=== PATIENT | female | born 1975 | race African-American/Black ===

== ENCOUNTER 2017-03-08 17:00 | Observation (INO) ==
[2017-03-08] MEDS ORDERED: CATAPRES PO STA (17:40)
[2017-03-08 17:58] LABS: BASOPHILS % (AUTO) 0.4 % (0.0-3.0); EOSINOPHILS # (AUTO) 0.2 K/ul (0.0-0.7); EOSINOPHILS % (AUTO) 2.3 % (0.0-7.0); HEMATOCRIT 26.7 % (37.0-47.0); HEMOGLOBIN 8.7 g/dl (12.0-16.0); IMMATURE GRANULOCYTE % (AUTO) 0.1 % (0.0-5.0); LYMPHOCYTES % (AUTO) 40.5 (10.0-50.0); MEAN CORPUSCULAR HEMOGLOBIN 26.8 pg (27.0-31.0); MEAN CORPUSCULAR HGB CONC 32.6 (31.8-35.4); MEAN CORPUSCULAR VOLUME 82.2 fl (81.0-99.0); MONOCYTES # (AUTO) 0.5 K/uL (0.4-2.0); MONOCYTES % (AUTO) 6.6 (0-10); NEUTROPHILS # (AUTO) 3.7 K/ul (2.0-6.9); NEUTROPHILS % (AUTO) 50.1; PLATELET COUNT 321 10^3/uL (140-440); RED BLOOD COUNT 3.25 10^6/ul (4.20-5.40); WHITE BLOOD COUNT 7.38 K/ul (4.6-10.2)
[2017-03-08] MEDS ORDERED: ZESTRIL ONE (17:59)
[2017-03-08 18:18] LABS: ALBUMIN 3.4 g/dL (3.4-5.0); ALBUMIN/GLOBULIN RATIO 1.03; ANION GAP 9.9; BILIRUBIN,TOTAL 0.18 mg/dL (0.00-1.20); BUN/CREATININE RATIO 9.75; CALCIUM 8.6 mg/dL (8.2-10.2); CREATININE 0.82 mg/dL (0.60-1.30); POTASSIUM 2.9 mmol/L (3.5-5.10); TOTAL PROTEIN 6.7 g/dL (6.4-8.2)
[2017-03-08] MEDS: ZESTRIL PO SCH (18:31)
[2017-03-08 18:47] LABS: BILIRUBIN,URINE Negative (NEGATIVE); KETONES,URINE Negative (NEGATIVE); LEUKOCYTE ESTERASE ,URINE Negative (NEGATIVE); NITRITE,URINE Negative (NEGATIVE); PH,URINE 7.5 (5-9); PROTEIN,URINE Negative (NEGATIVE); URINE, BLOOD Negative (NEGATIVE)
[2017-03-08 18:48] LABS: ADD URINE MICROSCOPIC NO
[2017-03-08 18:50] LABS: URINE PREGNANCY INTERNAL QC INTERNAL QC VALID
[2017-03-08 18:59] LABS: COCAIN SCREEN,URINE NEGATIVE (NEGATIVE)
--- NOTE | 2017-03-08 19:27 | CT ---
EXAM: CT brain without contrast HISTORY: Hypertension TECHNIQUE: Multi-slice transaxial helical with coronal and sagital reformated images COMPARISON: None FINDINGS: The midline structures are central. The ventricles are neither dilated nor displaced. Th e brain attenuation with its romano-white matter interface is normal. No acute intraparenchymal or extr aaxial hemorrhagic collections are detected. The calvarium is intact. The visible paranasal sinuses and mastoid air cells are clear. IMPRESSION: No acute intracranial process.
[2017-03-08] MEDS ORDERED: K-DUR PO STA (20:16)
[2017-03-08 20:35] LABS: IMMATURE RETIC FRACTION 20.8; RETICULOCYTE % 1.14 %
[2017-03-08 21:13] LABS: FERRITIN 9.13 ng/mL (4.63-204.00); FOLATE 12.2 ng/mL (3.1-20.5)
[2017-03-09 04:43] LABS: BASOPHILS % (AUTO) 0.5 % (0.0-3.0); EOSINOPHILS # (AUTO) 0.2 K/ul (0.0-0.7); EOSINOPHILS % (AUTO) 3.6 % (0.0-7.0); HEMATOCRIT 26.3 % (37.0-47.0); HEMOGLOBIN 8.4 g/dl (12.0-16.0); IMMATURE GRANULOCYTE % (AUTO) 0.2 % (0.0-5.0); LYMPHOCYTES # (AUTO) 2.4 K/uL (0.60-3.4); LYMPHOCYTES % (AUTO) 43.8 (10.0-50.0); MEAN CORPUSCULAR HEMOGLOBIN 26.3 pg (27.0-31.0); MEAN CORPUSCULAR HGB CONC 31.9 (31.8-35.4); MEAN CORPUSCULAR VOLUME 82.2 fl (81.0-99.0); MONOCYTES # (AUTO) 0.4 K/uL (0.4-2.0); NEUTROPHILS # (AUTO) 2.4 K/ul (2.0-6.9); NEUTROPHILS % (AUTO) 43.9; PLATELET COUNT 304 10^3/uL (140-440); WHITE BLOOD COUNT 5.52 K/ul (4.6-10.2)
[2017-03-09 05:00] LABS: ALBUMIN/GLOBULIN RATIO 0.91; ANION GAP 8.9; BILIRUBIN,TOTAL 0.26 mg/dL (0.00-1.20); BUN/CREATININE RATIO 12.98; CALCIUM 8.8 mg/dL (8.2-10.2); CREATININE 0.77 mg/dL (0.60-1.30); POTASSIUM 3.9 mmol/L (3.5-5.10); TOTAL PROTEIN 6.3 g/dL (6.4-8.2)
[2017-03-09] MEDS: ZESTRIL PO SCH (08:13)
[2017-03-09] MEDS: NORCO 7.5-325 PO PRN ×2 (08:44→16:09)
[2017-03-09 09:22] LABS: CHOL/HDL RATIO 4.2 (4.5-5.5)
[2017-03-09] MEDS ORDERED: ZOFRAN 4 MG/2 ML IVP PRN (18:02)
[2017-03-09] MEDS: TORADOL IVP PRN (18:30)
--- NOTE | 2017-03-10 07:41 | ECHO2D ---
Date of Exam: 03/09/17 Ordering Physician: JERSEY LIVE Room #: 122 Reason for Echo: HYPERTENSION, SYNCOPE M-Mode Normal Adult Results LV Dimensions Normal Adult Results AoV Opening excursions >1.6 >1.6 LVEDD-base- 3.5-5.8 5.0 Ao root dimensions 2.0-3.7 2.8 LVESD-base- 3.1-4.6 L. Atrium dimensions 1.9-3.8 4.1 Post. Wall thickness 0.8-1.1 1.3 IV septum (thickness) 0.7-1.2 1.3 Post. Wall excursion 0.72-1.3 NORMAL Septal motion NORMAL Systolic motion R. Ventricular cavity 1.5-2.0 NORMAL LVEF 60% 64% Paradoxical septal wall motion NORMAL 2-D : ENLARGED LEFT ATRIAL CAVITY--NORMAL LEFT VENTRICULAR CONTRACTILITY-- NORMAL VALVES, NO EFFUSION, NO THROMBUS M-MODE: MV: NORMAL AV: NORMAL TV: NORMAL PV: CHAMBER SIZE: ENLARGED LEFT ATRIAL CAVITY WALL MOTION: NORMAL PERICARDIUM: NORMAL INTERPRETATION: 1. LEFT VENTRICULAR HYPERTROPHY WITH ENLARGED LEFT ATRIAL CAVITY 2. NORMAL LEFT VENTRICULAR CONTRACTILITY 3. NORMAL VALVES MTDD
[2017-03-10] MEDS: ZESTRIL PO SCH (09:36)
[2017-03-10] MEDS: TORADOL IVP PRN (09:36)
[2017-03-10] MEDS: NORCO 7.5-325 PO PRN (09:43)
[2017-03-10 14:15] VITALS: BP 128/80; TEMP 99.2
--- NOTE | 2017-03-10 15:21 | PN ---
DATE OF SERVICE: 03/09/17 SUBJECTIVE: Admitted from the office for hypertensive urgency and the patient's potassium was low which has been replaced. The patient complains of some headache otherwise, no nausea or vomiting. No blurry vision. REVIEW OF SYSTEMS: CONSTITUTIONAL: No fever, no chills. HEENT: Normal. ENDOCRINE: No weight gain, no weight loss. CVS: No angina symptoms. No CHF symptoms. No palpitations. No atypical chest pain for CAD. No shortness of breath. No PND, no orthopnea. RESPIRATORY: No cough, no hemoptysis. GI: No nausea, no vomiting. No abdominal pain. : No hematuria. No polyuria. MUSCULOSKELETAL:. No joint swelling. [employer]: Headache. No blurry vision. PSYCHIATRIC: Not anxious. No depression. No suicidal thoughts. No homicidal thoughts. SKIN: Intact. No rash. PHYSICAL EXAMINATION: V/S: BP 148/100, respiratory rate 18, heart rate 68, temperature 98.4, saturation 98 on room air. HEENT: Normocephalic, atraumatic. Mucosa dry. Pallor positive. No icterus. NECK: Supple. No JVD, no carotid bruit. No lymphadenopathy. LUNGS: Decreased entry. Clear to auscultation. No rales or rhonchi. HEART: S1, S2 normal. No S3. No murmur, gallop or regurgitation. ABDOMEN: Soft, nontender. Bowel sounds active. No rigidity. No rebound or guarding. No CVA tenderness. EXTREMITIES: No clubbing, cyanosis or pedal edema. MUSCULOSKELETAL: No joint swelling. NEUROLOGIC: Awake, alert, oriented times three. No focal deficit. LYMPHATIC: No lymph nodes palpable. SKIN: Intact. LABS: White count 7.38, hemoglobin 8.7, hematocrit 26.7, platelet count 321. Sodium 142, potassium 2.9, chloride 105, bicarb 30, BUN 8, creatinine 0.8. Glucose 89. ASSESSMENT: 1. Hypertensive urgency status post 2. Hypokalemia being replaced 3. Anemia most likely iron deficiency anemia from the heavy menses but will evaluate 4. Headache most likely migraine, patient has. PLAN: 1. [place] 5 mg q.8hr 2. Continue replacement of potassium 3. Continue Lisinopril 40 mg p.o. daily 4. Occult blood test this morning 5. Out of bed to chair 6. Activity as tolerated TIME SPENT: More than 35 minutes MTDD
--- NOTE | 2017-03-11 08:48 | HOLTER ---
PATIENT INFORMATION AND COMMENTS Attending Physician: JERSEY LIVE Indications: SYNCOPE, HYPERTENSION __ Patient Medications: NORCO, LISINOPRIL __ Pre-procedure Summary: Protocol: Standard Heart Rate Started: 03/09/17910 Minimum: 51 BPM Weight: 200 LBS Ended: 03/10/17910 Maximum: 110 BPM Height: 66" Duration: 24 HOURS Average: 67 BPM _ INTERPRETATIONS/OBSERVATIONS: 1. BASIC RHYTHM: SINUS, RATE 50 BPM TO 100 BPM, AVERAGE 67 BPM 2. RARE PAC'S AND PVC'S --ISOLATED 3. NO ST-T WAVE CHANGES FROM BASELINE 4. ACTIVITY LOG NOT MAINTAINED MTDD
--- NOTE | 2017-04-22 11:48 | DS ---
DATE OF SERVICE: 03/10/17 FINAL DIAGNOSIS: 1. HYPERTENSION UNCONTROLLED 2. NEAR SYNCOPAL EPISODE, PROBABLY FROM THE UNCONTROLLED HYPERTENSION 3. HEADACHES 4. COPD 5. CONSTIPATION 6. NICOTINE USE 7. HISTORY OF TUBAL LIGATION 8. ANEMIA. THE PATIENT HAS A HEAVY MENSES AND TAKES OVER THE COUNTER IRON PILLS. PLAN: 1. Discharge the patient home. 2. Follow up with [facility] within 3 to 4 days. 3. Keep checking the blood pressure. MEDICATIONS AT DISCHARGE: Norvasc 5 mg p.o. daily Lisinopril 40 mg p.o. daily DIET INSTRUCTIONS: Cardiac and healthy. ACTIVITY: As much as tolerated. DISEASE SPECIFIC EDUCATION: About the uncontrolled hypertension, risk of stroke was discussed and intracranial bleed was discussed. HOSPITAL COURSE: Greg Lua who is a 41 year old female came to the office to establish care. She did have a complaint that the patient had passed out at home. She didn't know what happened. The patient's had to get her to the bed. She woke up and she was not confused. She checked the blood pressure and it was high, so she came to the office. In the office the blood pressure was 177/117 in the left arm and 186/110 on the right arm. With the given history of syncopal episodes and uncontrolled high blood pressure, the patient was admitted to the hospital. CT of the head was negative for the stroke. Holter Monitoring was put on. Echocardiogram was done which showed left ventricular hypertrophy. No other findings. The patient was started on the Norvasc and Lisinopril 40 mg. With the given medication, the blood pressure has been controlled well. The patient's hemoglobin was 8.7 and 8.4 and when asked the patient says that she has a chronic problem with her menses. The patient is planning to see the [employer]NA[employer] as an outpatient for a possible hysterectomy or going onto the control medication. Anemia profile done which showed iron levels for 22 and TIBC 454. Cholesterol was normal. As blood pressure was getting controlled, the patient had been active and alert and did not have any problems, the patient was discharged to home. TIME SPENT: MORE THAN 60 MINUTES [facility]
== END 2017-03-10 15:49 | disposition home or self-care (01) ==
LOC: INTOOBSV 17:00 → MEDSURG B 17:00
PROVIDERS: ADMIT Emergency Medicine; ATTEND Emergency Medicine
DX: I16.0 Hypertensive urgency (principal); I10 Essential (primary) hypertension; I51.7 Cardiomegaly; R55 Syncope and collapse; D64.9 Anemia, unspecified; R51 Headache; J44.9 Chronic obstructive pulmonary disease, unspecified; K59.00 Constipation, unspecified; F17.200 Nicotine dependence, unspecified, uncomplicated; Z98.51 Tubal ligation status
CPT/HCPCS: 36415; 80053; 80061; 80306; 81001; 81025; 82607; 82728; 82746; 83540; 83550; 84443; 84466; 85025; 85045; 93005; 93010; 93227

== ENCOUNTER 2018-01-25 15:53 | Outpatient (CLI) | END 2018-01-25 15:54 | disposition home or self-care (01) | LOC: RHC-LAB 15:53 | PROVIDERS: ATTEND Nurse Practitioner Family | DX: I10 Essential (primary) hypertension (principal); J02.9 Acute pharyngitis, unspecified | CPT/HCPCS: 36415; 80053; 80061; 85025; 87651 ==

== ENCOUNTER 2018-03-02 07:44 | Outpatient (CLI) ==
--- NOTE | 2018-03-02 10:14 | MAMMO ---
EXAM: Bilateral digital screening mammogram (2-D and 3-D) History: Baseline screening Findings: MLO and CC views of bilateral breasts demonstrate heterogeneously dense breast parenchyma which can obscure small lesions. There are no dominant masses, no suspicious microcalcifications and no architectural distortions. CAD was reviewed by the radiologist. Tomosynthesis was performed. Be nign bilateral axillary lymph nodes. Impression: Benign mammogram. Recommend followup routine screening mammography in 1 year. BIRADS 2
== END 2018-03-02 07:45 | disposition home or self-care (01) ==
LOC: RAD 07:44
PROVIDERS: ATTEND Nurse Practitioner Family
DX: Z12.31 Encounter for screening mammogram for malignant neoplasm of breast (principal)

== ENCOUNTER 2018-04-27 13:42 | Emergency (ER) ==
[2018-04-27 13:50] VITALS: BP 132/84; TEMP 98.2; BMI 35.2
[2018-04-27] MEDS ORDERED: DUONEB NEB STA (15:12)
[2018-04-27] MEDS ORDERED: TUSSIONEX PO STA (15:13)
[2018-04-27] MEDS ORDERED: DECADRON 4 MG/ML SDV IM STA (15:13)
[2018-04-27] MEDS ORDERED: ZITHROMAX PO STA (15:14)
--- NOTE | 2018-04-27 16:19 | DI ---
EXAM: PA and lateral views of the chest HISTORY: Cough. COMPARISON: None FINDINGS: The cardiomediastinal silhouette is normal. There is no pneumothorax or pleural effusion. There is no consolidation, nodule or mass. The osseous structures are unremarkable. IMPRESSION: No acute cardiopulmonary process
--- NOTE | 2018-04-27 16:19 | ED.PDOC ---
General ED Provider: Dr. SERENITY MCKEON Chief Complaint: Respiratory Complaint Stated Complaint: cough, congestion, flu like symptoms Time Seen by Physician: 14:00 Mode of Arrival: Walk-In Information Source: Patient Exam Limitations: No limitations Primary Care Provider: OUSMANE URIBE Nursing and Triage Documentation Reviewed and Agree: Yes Does patient meet sepsis criteria?: No System Inflammatory Response Syndrome: Not Applicable Sepsis Protocol: For patient's 13 years and over: Temp is 96.8 and below OR 101 and greater Pulse >90 BPM Resp >20/minute Acutely Altered Mental Status Are patient's symptoms suggestive of a new infection, such as: -Pneumonia -Skin, Soft Tissue -Endocarditis -UTI -Bone, Joint Infection -Implantable Device -Acute Abdominal Infection -Wound Infection -Meningitis -Blood Stream Catheter Infection -Unknown Respiratory Complaint Exam - Respiratory Complaint/Exam Onset/Duration: 1 day Symptoms Are: Still present Timing: Intermittent Initial Severity: Moderate Current Severity: Moderate Location: Throat, Chest Character: Reports: Non-productive cough, Dry cough Aggravating: Reports: None Alleviating: Reports: Bronchodilators Associated Signs and Symptoms: Reports: Chills, URI, Nasal congestion. Denies: Rapid breathing, Dyspnea, Fever, Chest pain, Pleuritic chest pain, Wheezing, Hemoptysis, Dizziness, Calf pain, Calf swelling, Edema, Hoarseness, Sinus discomfort, Vomiting, Sore throat, Weight loss, Decreased oral intake, Increased thirst, Increased appetite, Increased urination History of Healthcare-Acquired Pneumonia: No Related Surgical History: Reports: None Pulmonary Embolism Risk Factors: None Cardiac Risk Factors: Reports: None Pseudomonas Risk Factors: Reports: None Tuberculosis Risk Factors: Reports: None Status Asthmaticus Risk Factors: Reports: None Home Oxygen Use: No Recent Stress Test: No Recent Echo/LV Function: No Current Antibiotic Use: No Current Asthma Medication Use: No Respiratory Distress: None Inadequate Respiratory Effort: No Dysphagia Present: No Stridor Present: No JVD Present: No Accessory Muscle Use: No Retractions: Not Present Diminished Breath Sounds: No Sinus Tenderness: None Grunting Respirations: No Kussmaul Respirations: No Differential Diagnoses: Pneumonia, Bronchitis, URI Review of Systems - Review Of Systems Constitutional: Reports: Malaise Eyes: Reports: No symptoms Ears, Nose, Mouth, Throat: Reports: No symptoms Respiratory: Reports: Cough Cardiac: Reports: No symptoms GI: Reports: No symptoms : Reports: No symptoms Musculoskeletal: Reports: No symptoms Skin: Reports: No symptoms Neurological: Reports: No symptoms Endocrine: Reports: No symptoms Hematologic/Lymphatic: Reports: No symptoms All Other Systems: Reviewed and Negative Past Medical History - Past Medical History Previously Healthy: No Endocrine: Reports: Dyslipidemia Cardiovascular: Reports: Hypertension Respiratory: Reports: Asthma Hematological: Reports: None Gastrointestinal: Reports: None Genitourinary: Reports: None Neuro/Psych: Reports: None Musculoskeletal: Reports: None Cancer: Reports: None Last Menstrual Period: NA - Surgical History General Surgical History: Reports: None - Family History Family History: Reports: None - Social History Smoking Status: Former smoker Hx Substance Use: No Alcohol Screening: None Physical Exam - Physical Exam Appearance: Ill-appearing Ill-appearing: Mild Eyes: EDUARDO, EOMI, Conjunctiva clear ENT: Ears normal, Nose normal, Oropharynx normal Respiratory: Rhonchi, Wheezes Cardiovascular: RRR, Pulses normal, No rub, No murmur GI/: Soft, Nontender, No masses, Bowel sounds normal, No Organomegaly Musculoskeletal: Normal strength, ROM intact, No edema, No calf tenderness Skin: Warm, Dry, Normal color Neurological: Sensation intact, Motor intact, Reflexes intact, Cranial nerves intact, Alert, Oriented Psychiatric: Affect appropriate, Mood appropriate Re-Evaluation - Re-Evaluation Time of Re-Evaluation: 16:00 Status: Improved Vital Signs Stable: Yes Pain Level: 0 Appearance: NAD Lungs: Clear Skin: Warm and Dry Neuro: Alert and Oriented X3 CV: RRR Critical Care Note - Critical Care Note Total Time (mins): 0 Course - Course Hematology/Chemistry: 04/27/18 15:32 04/27/18 15:32 Orders, Labs, Meds: Lab Review 04/27/18 04/27/18 04/27/18 15:32 15:32 15:32 WBC 5.93 RBC 4.10 L Hgb 12.7 Hct 38.0 MCV 92.7 MCH 31.0 MCHC 33.4 RDW Coeff of Jude 12.7 Plt Count 286 Immature Gran % (Auto) 0.2 Neut % (Auto) 47.5 Lymph % (Auto) 37.3 [place] % (Auto) 6.9 Eos % (Auto) 7.6 H Baso % (Auto) 0.5 Immature Gran # (Auto) 0.0 Neut # (Auto) 2.8 Lymph # (Auto) 2.2 [place] # (Auto) 0.4 Eos # (Auto) 0.5 Baso # (Auto) 0.0 Sodium 136.9 Potassium 3.89 Chloride 103.0 Carbon Dioxide 28.1 Anion Gap 9.69 BUN 7.2 Creatinine 0.70 Estimated GFR (MDRD) 112.00 BUN/Creatinine Ratio 10.28 Glucose 85.1 Calcium 9.18 Total Bilirubin 0.34 AST 21.7 ALT 15.5 Alkaline Phosphatase 58.4 Total Protein 7.99 Albumin 4.59 Globulin 3.40 Albumin/Globulin Ratio 1.35 Influ A Molecular Assay Negative by naat Influ B Molecular Assay Negative by naat Orders Category Date Time Status NEBULIZER TREATMENT Stat CARDIO 04/27/18 15:13 Completed CBC W/ AUTO DIFF Stat LAB 04/27/18 15:32 Completed COMPREHENSIVE METABOLIC PANEL Stat LAB 04/27/18 15:32 Completed FLU A/B MOLECULAR Stat LAB 04/27/18 15:32 Completed MOLECULAR GROUP A STREP Stat LAB 04/27/18 15:32 Completed Azithromycin [Zithromax] MEDS 04/27/18 15:14 Discontinued 1,000 mg PO ONCE STA Dexamethasone 4 mg/ml Inj [Decadron 4 mg/ml Sdv] MEDS 04/27/18 15:13 Discontinued 8 mg IM ONCE STA Hydrocodone/Chlorphen Polis [Tussionex] MEDS 04/27/18 15:13 Discontinued 5 ml PO ONCE STA Ipratropium/Albuterol Neb [Duoneb] MEDS 04/27/18 15:12 Discontinued 1 vial NEB ONCE STA CHEST, 2 VIEWS PA & LAT Stat RADS 04/27/18 15:11 Ordered Medications Discontinued Medications Generic Name Dose Route Start Last Admin Trade Name Freq PRN Reason Stop Dose Admin Albuterol/Ipratropium 1 vial 04/27/18 15:12 04/27/18 15:25 Duoneb NEB 04/27/18 15:13 1 vial ONCE STA Administration Azithromycin 1,000 mg 04/27/18 15:14 04/27/18 15:41 Zithromax PO 04/27/18 15:15 1,000 mg ONCE STA Administration Chlorphenir/Hydrocodone Polistirex 5 ml 04/27/18 15:13 04/27/18 15:42 Tussionex PO 04/27/18 15:14 5 ml ONCE STA Administration Dexamethasone Sodium Phosphate 8 mg 04/27/18 15:13 04/27/18 15:43 Decadron 4 Mg/Ml Sdv IM 04/27/18 15:14 8 mg ONCE STA Administration Vital Signs: Temp Pulse Resp BP Pulse Ox 04/27/18 13:45 98.2 F 82 16 132/84 98 Departure - Departure Time of Disposition: 16:19 Disposition: HOME SELF-CARE Discharge Problem: Bronchitis, Viral syndrome Instructions: Viral Syndrome (ED) Condition: Good Pt referred to PMD for follow-up: Yes IPMP verified?: No Additional Instructions: Please call your Family Physician as soon as possible to schedule a follow-up appointment. Prescriptions: Prednisone 10 mg PO DAILYWM #7 tablet Allergies/Adverse Reactions: Allergies No Known Allergies Allergy (Unverified 04/27/18 13:44) Home Medications: Ambulatory Orders Acetaminophen [Tylenol] 325 mg PO PRN 03/08/17 Prednisone 10 mg PO DAILYWM #7 tablet 04/27/18 Disposition Discussed With: Patient
== END 2018-04-27 16:32 | disposition home or self-care (01) ==
LOC: ED 13:42
DX: J20.9 Acute bronchitis, unspecified (principal); I10 Essential (primary) hypertension; E78.5 Hyperlipidemia, unspecified
CPT/HCPCS: 36415; 80053; 85025; 87502; 87651; 94640; 96372; 99283

== ENCOUNTER 2018-05-02 10:02 | Emergency (ER) ==
[2018-05-02 10:08] VITALS: BP 122/85; TEMP 98.6; BMI 34.3
[2018-05-02] MEDS ORDERED: DECADRON 4 MG/ML SDV IM STA (10:14)
[2018-05-02] MEDS ORDERED: DUONEB NEB STA ×2 (10:14→12:56)
--- NOTE | 2018-05-02 11:56 | CT ---
EXAM: CT chest without contrast. HISTORY: Cough. COMPARISON: Chest radiograph 04/27/2018. TECHNIQUE: Multiple axial images of the chest were obtained without intravenous contrast. Images we re reformatted in the sagittal and coronal planes. FINDINGS: Evaluation for lymphadenopathy is limited by lack of intravenous contrast. Heart size is normal. No pericardial effusion identified. The lungs are clear without consolidation, pleural effusion or pneumothorax.. No acute abnormality identified in the upper abdomen. The osseous structures are within normal limits for the patient's age. IMPRESSION: No acute cardiopulmonary process.
--- NOTE | 2018-05-02 12:57 | ED.PDOC ---
General ED Provider: Dr. SERENITY MCKEON Chief Complaint: Shortness of Air Stated Complaint: cough wheez seen in the ED A FEW DAYS AGO BUT FEEL NO BETTER Time Seen by Physician: 10:00 (SEEN WITH NURSE AT ALL TIMES ) Mode of Arrival: Walk-In Information Source: Patient Exam Limitations: No limitations Primary Care Provider: OUSMANE URIBE Nursing and Triage Documentation Reviewed and Agree: Yes Does patient meet sepsis criteria?: No If yes, has appropriate treatment been initiated?: No System Inflammatory Response Syndrome: Not Applicable Sepsis Protocol: For patient's 13 years and over: Temp is 96.8 and below OR 101 and greater Pulse >90 BPM Resp >20/minute Acutely Altered Mental Status Are patient's symptoms suggestive of a new infection, such as: -Pneumonia -Skin, Soft Tissue -Endocarditis -UTI -Bone, Joint Infection -Implantable Device -Acute Abdominal Infection -Wound Infection -Meningitis -Blood Stream Catheter Infection -Unknown Respiratory Complaint Exam - Respiratory Complaint/Exam Onset/Duration: 4 DAYS Symptoms Are: Still present Timing: Intermittent Initial Severity: Moderate Current Severity: Mild Location: Nose, Throat, Chest Character: Reports: Non-productive cough Aggravating: Reports: None Alleviating: Reports: None Associated Signs and Symptoms: Reports: URI, Nasal congestion. Denies: Rapid breathing, Dyspnea, Fever, Chills, Chest pain, Pleuritic chest pain, Wheezing, Hemoptysis, Dizziness, Calf pain, Calf swelling, Edema, Hoarseness, Sinus discomfort, Vomiting, Sore throat, Weight loss, Decreased oral intake, Increased thirst, Increased appetite, Increased urination Related History: Reports: Similar episode Related Surgical History: Reports: None Pulmonary Embolism Risk Factors: None Cardiac Risk Factors: Reports: None Pseudomonas Risk Factors: Reports: None Tuberculosis Risk Factors: Reports: Corticosteriod use (BY MIKE FROM FIRST VISIT) Status Asthmaticus Risk Factors: Reports: None Home Oxygen Use: No Recent Stress Test: No Recent Echo/LV Function: No Current Antibiotic Use: No Current Asthma Medication Use: No Respiratory Distress: None Inadequate Respiratory Effort: No Dysphagia Present: No Stridor Present: No JVD Present: No Accessory Muscle Use: No Retractions: Not Present Kussmaul Respirations: No Differential Diagnoses: Pneumonia, Bronchitis, URI, Lower Resp. Infection Review of Systems - Review Of Systems Constitutional: Reports: Malaise Eyes: Reports: No symptoms Ears, Nose, Mouth, Throat: Reports: No symptoms Respiratory: Reports: Cough, Wheezing Cardiac: Reports: No symptoms GI: Reports: No symptoms : Reports: No symptoms Musculoskeletal: Reports: No symptoms Skin: Reports: No symptoms Neurological: Reports: No symptoms Endocrine: Reports: No symptoms Hematologic/Lymphatic: Reports: No symptoms All Other Systems: Reviewed and Negative Past Medical History - Past Medical History Previously Healthy: No Endocrine: Reports: Dyslipidemia Cardiovascular: Reports: Hypertension Respiratory: Reports: Asthma Hematological: Reports: None Gastrointestinal: Reports: None Genitourinary: Reports: None Neuro/Psych: Reports: None Musculoskeletal: Reports: None Cancer: Reports: None Last Menstrual Period: n/a - Surgical History General Surgical History: Reports: None - Family History Family History: Reports: None - Social History Smoking Status: Former smoker Hx Substance Use: No Alcohol Screening: None Physical Exam - Physical Exam Appearance: Ill-appearing Ill-appearing: Mild Eyes: EDUARDO, EOMI, Conjunctiva clear ENT: Ears normal, Nose normal, Oropharynx normal Respiratory: Rhonchi, Wheezes Cardiovascular: RRR, Pulses normal, No rub, No murmur GI/: Soft, Nontender, No masses, Bowel sounds normal, No Organomegaly Musculoskeletal: Normal strength, ROM intact, No edema, No calf tenderness Skin: Warm, Dry, Normal color Neurological: Sensation intact, Motor intact, Reflexes intact, Cranial nerves intact, Alert, Oriented Psychiatric: Affect appropriate, Mood appropriate Interpretation - Radiology Interpretation Radiology Interpretation By: Radiologist Radiology Results: No acute changes Re-Evaluation - Re-Evaluation Time of Re-Evaluation: 12:57 Status: Improved Vital Signs Stable: Yes Pain Level: 0 Appearance: NAD Lungs: Clear Skin: Warm and Dry Neuro: Alert and Oriented X3 CV: RRR Critical Care Note - Critical Care Note Total Time (mins): 0 Course - Course Orders, Labs, Meds: Orders Category Date Time Status NEBULIZER TREATMENT Stat CARDIO 05/02/18 10:14 Completed Dexamethasone 4 mg/ml Inj [Decadron 4 mg/ml Sdv] MEDS 05/02/18 10:14 Discontinued 4 mg IM ONCE STA Ipratropium/Albuterol Neb [Duoneb] MEDS 05/02/18 10:14 Discontinued 1 vial NEB ONCE STA CT CHEST W/O CONTRAST Stat RADS 05/02/18 10:13 Completed Medications Discontinued Medications Generic Name Dose Route Start Last Admin Trade Name Freq PRN Reason Stop Dose Admin Albuterol/Ipratropium 1 vial 05/02/18 10:14 05/02/18 10:29 Duoneb NEB 05/02/18 10:15 1 vial ONCE STA Administration Dexamethasone Sodium Phosphate 4 mg 05/02/18 10:14 05/02/18 10:26 Decadron 4 Mg/Ml Sdv IM 05/02/18 10:15 4 mg ONCE STA Administration Vital Signs: Temp Pulse Resp BP Pulse Ox 05/02/18 10:02 98.6 F 108 H 20 122/85 97 Departure - Departure Time of Disposition: 12:57 Disposition: HOME SELF-CARE Discharge Problem: Viral syndrome, Bronchitis Instructions: Viral Syndrome (ED) Condition: Good Pt referred to PMD for follow-up: Yes IPMP verified?: No Additional Instructions: Please call your Family Physician as soon as possible to schedule a follow-up appointment. Allergies/Adverse Reactions: Allergies No Known Allergies Allergy (Verified 05/02/18 10:07) Home Medications: Ambulatory Orders Acetaminophen [Tylenol] 325 mg PO PRN 03/08/17 Prednisone 10 mg PO DAILYWM #7 tablet 04/27/18 Disposition Discussed With: Patient
== END 2018-05-02 13:54 | disposition home or self-care (01) ==
LOC: ED 10:02
DX: B34.9 Viral infection, unspecified (principal); J40 Bronchitis, not specified as acute or chronic
CPT/HCPCS: 94640; 96372; 99282

== ENCOUNTER 2018-09-22 08:44 | Outpatient (CLI) | END 2018-09-22 08:45 | disposition home or self-care (01) | LOC: RHC-LAB 08:44 | PROVIDERS: ATTEND Nurse Practitioner Family | DX: I10 Essential (primary) hypertension (principal); D50.0 Iron deficiency anemia secondary to blood loss (chronic); E78.1 Pure hyperglyceridemia | CPT/HCPCS: 36415; 80053; 80061; 84443; 85025 ==